=== PATIENT | male | born 1960 | race Caucasian/White ===

== ENCOUNTER 2019-05-09 10:30 | Emergency (ER) | payer BC ==
[2019-05-09] MEDS ORDERED: DUONEB 0.5-3 MG/3 ml Neb IH ONE (10:57)
[2019-05-09] MEDS ORDERED: PROVENTIL 2.5 MG/3 ML NEB IH ONE ×2 (10:57→11:25)
--- NOTE | 2019-05-09 10:59 | ERPHSYRPT ---
- History of Present Illness Time Seen by Provider: 05/09/19 10:33 Source: patient, other () Exam Limitations: no limitations Patient Subjective Stated Complaint: pt here for cough productive for a couple days, fever today 102.6. chills, loose stools yesterday, 2 loose stools today. Triage Nursing Assessment: pt alert, walked in , no distress, resp easy, skin w/ d/p, has cough.moves all ext well, no edema Physician History: the patient is a 58-year-old male with a past medical history significant for a cigarette smoking she currently smokes one pack of cigarettes a day and has been smoking for well over 20 years presents with a chief complaint of shortness of breath and cough. He reportedly started to experience a cough this past Friday and over the last 24 hours the cough has become productive over the patient has been swollen and sputum and has been unable to note any color change. Is also dorsum and shortness of breath more so with exertion and also endorses subcostal chest pain with coughing otherwise is pain-free. Indoors having subjective fevers and chills and just started to experience nonbloody diarrhea over the last 24 hours. He denies headache but endorsed having rhinorrhea and a sore throat. Patient denies otalgia, back pain, abdominal pain, nausea, vomiting. He's not had his influenza vaccine this year. He is accompanied in the emergency department by his who provide details pertaining to history of present illness. Timing/Duration: other (05/04) Severity of Dyspnea-Max: mild Severity of Dyspnea-Current: mild Modifying Factors: Improves With: exertion Associated Symptoms: cough, fever, wheezing, chills, productive cough, No chest pain/discomfort, No edema, No ankle swelling, No heaviness, No heart racing, No lightheadedness, No leg swelling, No sweating, No tightness Allergies/Adverse Reactions: No Known Drug Allergies Allergy (Unverified 05/09/19 10:42) Home Medications: Dorzolamide HCl 1 drop BID 05/09/19 [History] Latanoprost 1 drop DAILY 05/09/19 [History] Lisinopril 20 mg DAILY 05/09/19 [History] Timolol Maleate 1 drop BID 05/09/19 [History] Hx Influenza Vaccination/Date Given: No Hx Pneumococcal Vaccination/Date Given: No Immunizations Up to Date: Yes - Review of Systems Constitutional: Fever (aal), Chills Eyes: No Symptoms (aandand) Ears, Nose, & Throat: Nose Congestion ( and), Throat Pain, No Ear Pain (ggoing away), No Nose Pain, No Epistaxis Respiratory: Cough, Dyspnea on Exertion (SIMMONS) (E. or rhonchi), Wheezing (a) Cardiac: No Chest Pain, No Palpitations, No Syncope, No Orthopnea Abdominal/Gastrointestinal: Diarrhea, No Nausea (aa call), No Vomiting (on), No Constipation, No Hematemesis Genitourinary Symptoms: No Symptoms Musculoskeletal: No Symptoms Skin: No Symptoms Neurological: No Symptoms All Other Systems: Reviewed and Negative - Past Medical History Pertinent Past Medical History: Yes ( with 2 we will give) ENT History: Glaucoma Cardiac History: Hypertension - Past Surgical History Past Surgical History: Yes Other Surgical History: hand surgery - Social History Smoking Status: Current every day smoker Exposure to second hand smoke: Yes Drug Use: none Patient Lives Alone: No - Nursing Vital Signs Nursing Vital Signs: Initial Vital Signs Temperature 100.5 F 05/09/19 10:34 Pulse Rate 95 H 05/09/19 10:34 Respiratory Rate 18 05/09/19 10:34 Blood Pressure 154/89 05/09/19 10:34 O2 Sat by Pulse Oximetry 97 05/09/19 10:34 Pain Scale Pain Intensity 4 - Physical Exam General Appearance: no apparent distress Eye Exam: PERRL/EOMI Ears, Nose, Throat Exam: hearing grossly normal, normal pharynx, No sinus pain/ drainage, No nasal congestion, No pharyngeal erythema, No tonsillar exudate, No tonsillar swelling Neck Exam: normal inspection, supple, No non-tender Respiratory Exam: airway intact, diminished breath sounds, prolonged expirations (and), wheezing, other (Fine late expiratory wheezing bilaterally in mid to lower lobes when auscultating posteriorly), No chest tenderness (a), No respiratory distress, No accessory muscle use Cardiovascular/Chest Exam: normal heart sounds, regular rate/rhythm (aanda), normal peripheral pulses, No murmur, No edema, No JVD, No gallop ( home and he wasthe he is), No bradycardia, No tachycardia (a), No friction rub, No gallop/S3 , No gallop/S4 Abdominal/Gastrointestinal Exam: soft, No tenderness, No distention, No mass, No guarding Extremity Exam: non-tender Peripheral Pulses Exam: femoral (L): 0 Neurologic Exam: alert, oriented x 3 Skin Exam: normal color, warm, dry, No petechiae, No jaundice, No abrasion, No ecchymosis (and in no) SpO2 Interpretation: normal SpO2: 97 O2 Delivery: Room Air (in the) - Course Nursing assessment & vital signs reviewed: Yes EKG Interpreted by Me: RATE, Sinus Rhythm, NORMAL AXIS, NORMAL INTERVALS, NORMAL QRS, Non-specific ST Changes, Other (EKG read by me at 11:07. Negative for ST segment changes consistent with acute myocardial ischemia or injury) - Radiology Exams Chest X-ray Interpretation: Interpreted by me, Pneumonia (Left lower lobe pneumonia. Awaiting formal radiology review) Ordered Tests: Active Orders 24 hr Category Date Time Status EKG-ER Only STAT Care 05/09/19 10:49 Active IV Insertion STAT Care 05/09/19 10:53 Active Pulse Oximetry (ED) STAT Care 05/09/19 10:49 Active CHEST 2 VIEWS (PA AND LAT) Stat Exams 05/09/19 10:50 Taken CBC W DIFF Stat Lab 05/09/19 11:00 Completed Peak Expiratory Flow Rate ONCE RT 05/09/19 11:10 Active Respiratory Therapy Assessment DAILY RT 05/09/19 11:10 Active Medication Summary Discontinued Medications Generic Name Dose Route Start Last Admin Trade Name Freq PRN Reason Stop Dose Admin Albuterol Sulfate 2.5 mg 05/09/19 10:49 05/09/19 11:17 Proventil 2.5 Mg/3 Ml Neb IH 05/09/19 10:50 2.5 mg STAT ONE Administration Albuterol Sulfate Confirm 05/09/19 10:57 Proventil 2.5 Mg/3 Ml Neb Administered 05/09/19 10:58 Dose 2.5 mg IH .STK-MED ONE Albuterol Sulfate Confirm 05/09/19 11:25 Proventil 2.5 Mg/3 Ml Neb Administered 05/09/19 11:26 Dose 2.5 mg IH .STK-MED ONE Albuterol Sulfate 2.5 mg 05/09/19 11:25 05/09/19 11:36 Proventil 2.5 Mg/3 Ml Neb IH 05/09/19 11:26 2.5 mg STAT ONE Administration Albuterol/Ipratropium 3 ml 05/09/19 10:49 05/09/19 11:06 Duoneb 0.5-3 Mg/3 Ml Neb IH 05/09/19 10:50 3 ml STAT ONE Administration Albuterol/Ipratropium Confirm 05/09/19 10:57 Duoneb 0.5-3 Mg/3 Ml Neb Administered 05/09/19 10:58 Dose 3 ml IH .STK-MED ONE Aspirin 325 mg 05/09/19 12:27 Ecotrin 325 Mg PO 05/09/19 12:28 ONCE STA Prednisone 40 mg 05/09/19 10:49 05/09/19 11:06 Deltasone 20 Mg PO 05/09/19 10:50 40 mg STAT ONE Administration Prednisone Confirm 05/09/19 11:03 Deltasone 20 Mg Administered 05/09/19 11:04 Dose 40 mg .ROUTE .STK-MED ONE Lab/Rad Data: Laboratory Result Diagrams 05/09/19 11:00 05/09/19 11:00 Laboratory Results 05/09/19 05/09/19 05/09/19 Range/Units 11:00 11:00 11:00 WBC 10.2 (4.0-10.5) K/mm3 RBC 4.58 (4.1-5.6) M/mm3 Hgb 14.8 (12.5-18.0) gm/dl Hct 42.0 (42-50) % MCV 91.7 (78-100) fl MCH 32.3 H (26-32) pg MCHC 35.2 (32-36) g/dl RDW 13.7 (11.5-14.0) % Plt Count 199 (150-450) K/mm3 MPV 10.5 H (6-9.5) fl Gran % 79.0 H (36.0-66.0) % Eos # (Auto) 0.04 (0-0.5) Absolute Lymphs (auto) 0.98 L (1.0-4.6) Absolute Monos (auto) 1.10 (0.0-1.3) Lymphocytes % 9.6 L (24.0-44.0) % Monocytes % 10.8 (0.0-12.0) % Eosinophils % 0.4 (0.00-5.0) % Basophils % 0.2 (0.0-0.4) % Absolute Granulocytes 8.08 H (1.4-6.9) Basophils # 0.02 (0-0.4) Sodium Direct 139 (138-146) mmol/L Potassium 3.1 L (3.5-4.9) mmol/L Chloride 101 (98-109) mmol/L Carbon Dioxide 20 L (24-29) mmol/L Venous BUN 12 (8-26) mg/dL Creatinine 1.0 (0.6-1.3) mg/dL Glucose 158 H (70-105) mg/dL Ionized Calcium 1.31 (1.12-1.32) mmol/L Troponin 0.37 H (0.00-0.03) ng/mL - Progress Progress: improved Air Movement: good Progress Note: 05/09/19 11:02 The patient is nontoxic in appearance he presents with a chief complaint of initially dry cough that progressed to a productive cough as well as dyspnea on exertion. He is in no obvious respiratory distress and found to have fine late expiratory wheezing in the mid to lower lobes bilaterally. Given the patient's significant smoking history I am concerned the patient may have underlying emphysema that is undiagnosed and he may be suffering from an exacerbation of this versus COPD secondary to a viral upper respiratory tract infection. Pneumonia is also in the differential. I currently have a low suspicion for ACS but will check a troponin and if negative ACS is unlikely given his clinical symptoms and exam findings. A chest x-ray will be ordered to be for pneumonia, pleural effusion,, or evidence of pulmonary edema which may suggest CHF although my suspicion for this is low. In the meantime, he received no treatments in addition oral steroids and oral antibiotics in the emergency department and will be reassessed and if he clinically improved and is able to walk without hypoxia he'll be discharged home to follow with his primary care provider. Also during the initial history of present illness been discussed smoking cessation and on discuss this further on discharge. 05/09/19 11:56 the patient was sedated with his diagnosis of left lower lobe pneumonia. He was reassessed the fine and his wheezing cleared with the exception of wheezing in the left lower lobe consistent worse infiltrate was noted on the chest x- ray. In no significant respiratory distress and was able to ambulate around the department without developing hypoxia or increased work of breathing. Dr. Marino is currently paged and she is the on-call for the patient's primary care provider, Dr. Mendez. I'll speak to her to arrange outpatient followup this week. 05/09/19 12:36 05/09/19 0015 The patient's troponin came back elevated. Dr Moon was contacted and recommended transferring the patient to a facility that has cardiology capability. 05/09/19 The patient agrees to transfer to [facility] 05/09/19 12:43 I spoke to the ED physician at [facility] and the patient was accepted as an ED to ED transfer. The patient will be transferred via ALS for cardiac monitoring 05/09/19 12:46 The patient's CXR was uploaded the to the [facility]. 05/09/19 12:46 Blood Culture(s) Obtained: Yes Discussed with Dr.: Andree (Ok with discharge and call Dr. Mendez tomorrow to setup follow-up. ), Other (I spoke to the emergency room physician at [facility] who accepted the patient for transfer. Patient will be an ED to ED transfer) Counseled pt/family regarding: lab results, diagnosis, need for follow-up, rad results, smoking cessation - Departure Departure Disposition: Transfer ([facility]) Clinical Impression: Community acquired pneumonia, Hypokalemia, Tobacco abuse, Tobacco abuse counseling, Wheezing, Elevated troponin Condition: Stable Critical Care Time: No Referrals: JOVON MENDEZ MD [Primary Care Provider] - Additional Instructions: please call and schedule an appointment with your primary care provider to be seen this week and return if your shortness of breath becomes worse Prescriptions: Albuterol 2.5 mg/3 ml Neb [Proventil 2.5 mg/3 ml Neb] 2.5 mg IH Q2H/PRN PRN #25 neb PRN Reason: Shortness Of Breath/Wheezing Albuterol 8 gm Mdi Hfa [Ventolin Hfa MDI] 8 gm IH Q4H #1 hfa.[email or web address] Doxycycline Hyclate 100 mg [Vibramycin 100 MG] 100 mg PO BID #14 tab Prednisone 10 mg [Deltasone 10 mg] 60 mg PO DAILY #24 tablet
[2019-05-09] MEDS ORDERED: DELTASONE 20 MG ONE (11:03)
[2019-05-09] MEDS: DUONEB 0.5-3 MG/3 ml Neb IH ONE (11:06)
[2019-05-09] MEDS: DELTASONE 20 MG PO ONE (11:06)
[2019-05-09] MEDS: PROVENTIL 2.5 MG/3 ML NEB IH ONE ×2 (11:17→11:36)
[2019-05-09 11:20] LABS: Absolute Neutrophil Ct (ANC) 8.08 (1.4-6.9); BASOPHIL % 0.2 % (0.0-0.4); Basophil (Absolute #) 0.02 (0-0.4); Eosinophil % 0.4 % (0.00-5.0); Eosinophil (Absolute #) 0.04 (0-0.5); Hemoglobin 14.8 gm/dl (12.5-18.0); Lymphocyte (Absolute #) 0.98 (1.0-4.6); Lymphocytes % 9.6 % (24.0-44.0); Mean Cell Volume 91.7 fl (78-100); Mean Corpuscular Hemoglobin 32.3 pg (26-32); Mean Corpuscular Hgb Concent. 35.2 g/dl (32-36); Mean Platelet Volume 10.5 fl (6-9.5); Monocytes % 10.8 % (0.0-12.0); Platelet Count 199 K/mm3 (150-450); Red Blood Count 4.58 M/mm3 (4.1-5.6); Red Cell Distribution Width 13.7 % (11.5-14.0); White Blood Count 10.2 K/mm3 (4.0-10.5)
[2019-05-09] MEDS: Ecotrin 325 MG PO STA (12:46)
[2019-05-09 12:52] LABS: INFLUENZA A NEGATIVE (NEGATIVE); INFLUENZA B NEGATIVE (NEGATIVE); RESPIRATORY SYNCTIAL VIRUS NEGATIVE (Negative)
[2019-05-09 12:55] VITALS: BP 139/86; PULSE 96; O2SAT 93
[2019-05-09] MEDS ORDERED: TYLENOL EXTRA STRENGTH 500 MG ONE (12:55)
[2019-05-09] MEDS: TYLENOL EXTRA STRENGTH 500 MG PO STA (12:58)
--- NOTE | 2019-05-09 15:23 | XRAY ---
Indication: Cough 5 days. Comparison: None PA/lateral chest demonstrates lingula infiltrate. Remaining heart and right lung normal. Bony thorax intact.
== END 2019-05-09 13:05 | disposition short-term general hospital (02) ==
LOC: ED 10:30
DX: J18.9 Pneumonia, unspecified organism (principal); E87.6 Hypokalemia; Z72.0 Tobacco use; Z71.6 Tobacco abuse counseling; R06.2 Wheezing; R74.8 Abnormal levels of other serum enzymes; I10 Essential (primary) hypertension; Z79.899 Other long term (current) drug therapy
CPT/HCPCS: 36000; 36415; 71046; 80047; 83605; 84484; 85025; 87040; 87631; 93005; 93041; 94150; 94640; 94760; 99285; J7609; A9270-GY

== ENCOUNTER 2024-01-24 18:49 | Emergency (ER) | payer BC ==
[2024-01-24 19:14] VITALS: TEMP 97.2
--- NOTE | 2024-01-24 19:23 | ERPHSYRPT ---
- History of Present Illness Time Seen by Provider: 01/24/24 19:18 Historian: patient, family Exam Limitations: no limitations Patient Subjective Stated Complaint: pt here for loose stools since friday, he states he think he got hot outside working, was seen on and had labs done which family thinks were normal. low grade fever off and on Triage Nursing Assessment: pt walked in, resp easy. skin w/d/p. mucus membranes moist, abd soft and nontender to touch, no edema noted, Physician History: Pt has had diarrhea for about 1 week and had K of 2.6 Friday. No Abd pain but keeps drinking gatorade and having diarrhea. No Vomiting. Abd soft nontender without peritoneal signs or masses or distension. Normal mental status and neuro exam. Hx DM. Discussed risk/benefits of testing and Tx with pt and family including, CBC, CMP, IVF, K, Covid/FLu / RSV swabs, UA, Lactate, [place], Lipase and they wish to proceed, and these are ordered. Results discussed with pt and family. Timing/Duration: day(s) Activities at Onset: none Quality: other (No pain) Abdominal Pain Onset Location: other (No pain) Pain Radiation: no radiation Severity of Pain-Max: none Severity of Pain-Current: none Modifying Factors: Improves With: nothing Associated Symptoms: diarrhea, fever/chills, loss of appetite, No nausea, No vomiting Previous symptoms: same symptoms as today, recently seen, recently treated Allergies/Adverse Reactions: No Known Drug Allergies Allergy (Verified 01/24/24 18:54) Home Medications: Dorzolamide HCl 1 drop BID 05/09/19 [History] Latanoprost 1 drop DAILY 05/09/19 [History] lisinopriL [Lisinopril] 20 mg DAILY 05/09/19 [History] timoloL maleate [Timolol Maleate] 1 drop BID 05/09/19 [History] Hx Tetanus, Diphtheria Vaccination/Date Given: No Hx Influenza Vaccination/Date Given: No Hx Pneumococcal Vaccination/Date Given: No Immunizations Up to Date: Yes Travel Risk - International Travel Have you traveled outside of the country in past 3 weeks: No - Emerging Infectious Disease Are you exhibiting symptoms associated with any current EIDs: No - Review of Systems Constitutional: Fever, No Chills Eyes: No Symptoms Ears, Nose, & Throat: No Symptoms Respiratory: No Cough, No Dyspnea Cardiac: No Chest Pain, No Edema, No Syncope Abdominal/Gastrointestinal: Diarrhea, No Abdominal Pain, No Nausea, No Vomiting Genitourinary Symptoms: No Dysuria Musculoskeletal: No Back Pain, No Neck Pain Skin: No Rash Neurological: No Dizziness, No Focal Weakness, No Sensory Changes Psychological: No Symptoms Endocrine: No Symptoms Hematologic/Lymphatic: No Symptoms Immunological/Allergic: No Symptoms All Other Systems: Reviewed and Negative - Past Medical History Pertinent Past Medical History: Yes ( with 2 we will give) ENT History: Glaucoma Cardiac History: High Cholesterol, Hypertension Endocrine Medical History: Diabetes Type II - Past Surgical History Past Surgical History: Yes Other Surgical History: hand surgery - Social History Smoking Status: Former smoker Exposure to second hand smoke: No Drug Use: none Patient Lives Alone: No - Social Determinants of Health Will the patient participate in the screening: Declined to provide - Nursing Vital Signs Nursing Vital Signs: Initial Vital Signs Temperature 97.2 F 01/24/24 19:13 Pulse Rate 86 01/24/24 19:13 Respiratory Rate 18 01/24/24 19:13 Blood Pressure 110/79 01/24/24 19:13 O2 Sat by Pulse Oximetry 98 01/24/24 19:13 Pain Scale Pain Intensity 0 - Physical Exam General Appearance: no apparent distress, alert Eye Exam: PERRL/EOMI, eyes nml inspection Ears, Nose, Throat Exam: normal ENT inspection, pharynx normal, moist mucous membranes Neck Exam: normal inspection, non-tender, supple, full range of motion Respiratory Exam: normal breath sounds, lungs clear, No respiratory distress Cardiovascular Exam: regular rate/rhythm, normal heart sounds Gastrointestinal/Abdomen Exam: soft, No tenderness, No mass, No guarding, No pulsatile mass, No rebound, No hernia Rectal Exam: deferred Back Exam: normal inspection, normal range of motion, No CVA tenderness, No vertebral tenderness Extremity Exam: normal inspection, normal range of motion, pelvis stable Neurologic Exam: alert, oriented x 3, cooperative, normal mood/affect, nml cerebellar function, sensation nml, No motor deficits Skin Exam: normal color, warm, dry SpO2 Interpretation: normal SpO2: 98 O2 Delivery: Room Air - Course Nursing assessment & vital signs reviewed: Yes Ordered Tests: Active Orders 24 hr Category Date Time Status EKG-ER Only STAT Care 01/24/24 19:23 Active IV Insertion STAT Care 01/24/24 19:23 Active Telemetry q4h Care 01/24/24 19:28 Active Telemetry q4h Care 01/25/24 01:30 Active AMYLASE Stat Lab 01/24/24 19:35 Completed CBC W DIFF Stat Lab 01/24/24 19:35 Completed CMP Stat Lab 01/24/24 19:35 Completed CULTURE,URINE Stat Lab 01/24/24 21:42 Received LIPASE Stat Lab 01/24/24 19:35 Completed Lactic Acid Stat Lab 01/24/24 19:23 Completed Lactic Acid Stat Lab 01/24/24 22:16 Stop Req Lactic Acid Stat Lab 01/25/24 00:52 Completed MAG [MAGNESIUM] Stat Lab 01/25/24 00:30 Completed Potassium (Lab Test) [Potassium] Stat Lab 01/25/24 04:47 Completed UA W/RFX UR CULTURE Stat Lab 01/24/24 21:42 Completed Medication Summary Generic Name Dose Route Start Last Admin Trade Name Freq PRN Reason Stop Dose Admin Potassium Chloride 20 meq in 100 mls @ 50 mls/hr 01/24/24 19:30 01/24/24 21:32 Potassium Chloride 20 Meq In Water 100ml IV 01/24/24 23:29 50 mls/hr Q2H JANETT Administration Sodium Chloride 1,000 mls @ 150 mls/hr 01/24/24 21:00 01/25/24 02:44 Sodium Chloride 0.9% 1000 Ml IV 02/23/24 20:59 150 mls/hr .[id number] JANETT Administration Magnesium Sulfate/Dextrose 100 mls @ 200 mls/hr 01/25/24 05:02 01/25/24 05:05 Magnesium 1 Gm / 100 Ml D5w IV 01/25/24 05:31 200 mls/hr STAT ONE Administration Discontinued Medications Generic Name Dose Route Start Last Admin Trade Name Freq PRN Reason Stop Dose Admin Ciprofloxacin 500 mg 01/24/24 20:11 01/24/24 20:29 Ciprofloxacin 500 Mg Tablet PO 01/24/24 20:12 500 mg STAT ONE Administration Ciprofloxacin Confirm 01/24/24 20:28 Ciprofloxacin 500 Mg Tablet Administered 01/24/24 20:29 Dose 500 mg .ROUTE .STK-MED ONE Sodium Chloride 1,000 mls @ 999 mls/hr 01/24/24 19:23 01/24/24 19:35 Sodium Chloride 0.9% 1000 Ml IV 01/24/24 20:23 999 mls/hr .Q1H1M STA Administration Sodium Chloride Confirm 01/24/24 19:32 Sodium Chloride 0.9% 1000 Ml Administered 01/24/24 19:33 Dose 1,000 mls @ ud .ROUTE .STK-MED ONE Potassium Chloride 20 meq in 100 mls @ 50 mls/hr 01/25/24 01:29 01/25/24 01:40 Potassium Chloride 20 Meq In Water 100ml IV 01/25/24 03:28 50 mls/hr STAT ONE Administration Magnesium Sulfate/Dextrose Confirm 01/25/24 05:00 Magnesium 1 Gm / 100 Ml D5w Administered 01/25/24 05:01 Dose 100 mls @ ud IV .STK-MED ONE Lorazepam 2 mg 01/25/24 01:34 Lorazepam 2 Mg/1 Ml 2 Mg Vial IM 01/25/24 01:35 STAT ONE Magnesium Sulfate 1 gm 01/25/24 04:28 Magnesium Sulfate Injection IV 01/25/24 04:29 STAT ONE Metronidazole 500 mg 01/24/24 20:11 01/24/24 20:29 Metronidazole 500 Mg Tablet PO 01/24/24 20:12 500 mg STAT ONE Administration Metronidazole Confirm 01/24/24 20:28 Metronidazole 500 Mg Tablet Administered 01/24/24 20:29 Dose 500 mg .ROUTE .STK-MED ONE Potassium Bicarbonate 25 meq 01/24/24 20:09 01/24/24 20:29 Potassium Bicarbonate 25 Meq Tab PO 01/24/24 20:10 25 meq STAT ONE Administration Potassium Bicarbonate Confirm 01/24/24 20:28 Potassium Bicarbonate 25 Meq Tab Administered 01/24/24 20:29 Dose 25 meq .ROUTE .STK-MED ONE Potassium Bicarbonate 25 meq 01/25/24 01:30 01/25/24 01:39 Potassium Bicarbonate 25 Meq Tab PO 01/25/24 01:31 25 meq STAT ONE Administration Potassium Bicarbonate Confirm 01/25/24 01:39 Potassium Bicarbonate 25 Meq Tab Administered 01/25/24 01:40 Dose 25 meq .ROUTE .STK-MED ONE Lab/Rad Data: Laboratory Result Diagrams 01/24/24 19:35 01/25/24 04:47 Laboratory Results 01/25/24 01/25/24 01/25/24 Range/Units 04:47 00:52 00:30 WBC (4.23-9.07) x10^3/uL RBC (4.63-6.08) x10^6/uL Hgb (13.7-17.5) g/dL Hct (40.1-51.0) % MCV (79.0-92.2) fL MCH (25.7-32.2) pg MCHC (32.3-36.5) g/dL RDW (11.6-14.4) % Plt Count (163-337) x10^3/uL MPV (9.4-12.4) fL Gran % (34.0-67.9) % Immature Gran % (Auto) (0.001-0.429) % Nucleat RBC Rel Count (0.00-0.2) % Eos # (Auto) (0.04-0.54) x10^3/uL Immature Gran # (Auto) (0.001-0.031) x10^3u/L Absolute Lymphs (auto) (1.32-3.57) x10^3/uL Absolute Monos (auto) (0.30-0.82) x10^3/uL Absolute Nucleated RBC (0.00-0.012) x10^3u/L Lymphocytes % (21.8-53.1) % Monocytes % (5.3-12.2) % Eosinophils % (0.8-7.0) % Basophils % (0.2-1.2) % Absolute Granulocytes (1.78-5.38) x10^3/uL Basophils # (0.01-0.08) x10^3/uL Sodium (135-145) mmol/L Potassium 3.2 L (3.5-5.1) mmol/L Chloride (98-107) mmol/L Carbon Dioxide (22-30) mmol/L Anion Gap (5-15) MEQ/L BUN (9-20) mg/dL Creatinine (0.66-1.25) mg/dL Estimated GFR ML/MIN Glucose (74-106) mg/dL Lactic Acid 1.7 (0.4-2.0) Calcium (8.4-10.2) mg/dL Magnesium 1.5 L (1.6-2.3) mg/dL Total Bilirubin (0.2-1.3) mg/dL AST (17-59) U/L ALT (0-50) U/L Alkaline Phosphatase (38-126) U/L Serum Total Protein (6.3-8.2) g/dL Albumin (3.5-5.0) g/dL Amylase (30-110) U/L Lipase (23-300) U/L Urine Color (Yellow) Urine Appearance (Clear) Urine pH (4.6-8.0) Ur Specific [place] (1.005-1.030) Urine Protein (Negative) Urine Glucose (UA) (Negative) mg/dL Urine Ketones (Negative) Urine Blood (Negative) Urine Nitrite (Negative) Urine Bilirubin (Negative) Urine Urobilinogen (0.2) mg/dL Ur Leukocyte Esterase (Negative) U Hyaline Cast (Auto) (0-2) /LPF Urine Microscopic RBC (0-5) /HPF Urine Microscopic WBC (0-5) /HPF Ur Epithelial Cells (None Seen) /HPF Urine Bacteria (None Seen) /HPF Urine Culture Reflexed (NO) 01/24/24 01/24/24 01/24/24 Range/Units 21:42 19:35 19:35 WBC 9.5 H (4.23-9.07) x10^3/uL RBC 4.30 L (4.63-6.08) x10^6/uL Hgb 13.4 L (13.7-17.5) g/dL Hct 37.1 L (40.1-51.0) % MCV 86.3 (79.0-92.2) fL MCH 31.2 (25.7-32.2) pg MCHC 36.1 (32.3-36.5) g/dL RDW 14.0 (11.6-14.4) % Plt Count 317 (163-337) x10^3/uL MPV 9.2 L (9.4-12.4) fL Gran % 74.6 H (34.0-67.9) % Immature Gran % (Auto) 0.6 H (0.001-0.429) % Nucleat RBC Rel Count 0.0 (0.00-0.2) % Eos # (Auto) 0.11 (0.04-0.54) x10^3/uL Immature Gran # (Auto) 0.06 H (0.001-0.031) x10^3u/L Absolute Lymphs (auto) 1.11 L (1.32-3.57) x10^3/uL Absolute Monos (auto) 1.06 H (0.30-0.82) x10^3/uL Absolute Nucleated RBC 0.00 (0.00-0.012) x10^3u/L Lymphocytes % 11.7 L (21.8-53.1) % Monocytes % 11.2 (5.3-12.2) % Eosinophils % 1.2 (0.8-7.0) % Basophils % 0.7 (0.2-1.2) % Absolute Granulocytes 7.07 H (1.78-5.38) x10^3/uL Basophils # 0.07 (0.01-0.08) x10^3/uL Sodium 140 (135-145) mmol/L Potassium 2.9 L* (3.5-5.1) mmol/L Chloride 101 (98-107) mmol/L Carbon Dioxide 26 (22-30) mmol/L Anion Gap 15.3 H (5-15) MEQ/L BUN 10 (9-20) mg/dL Creatinine 1.08 (0.66-1.25) mg/dL Estimated GFR 78.1 ML/MIN Glucose 191 H (74-106) mg/dL Lactic Acid (0.4-2.0) Calcium 8.8 (8.4-10.2) mg/dL Magnesium (1.6-2.3) mg/dL Total Bilirubin 1.60 H (0.2-1.3) mg/dL AST 39 (17-59) U/L ALT 44 (0-50) U/L Alkaline Phosphatase 73 (38-126) U/L Serum Total Protein 6.9 (6.3-8.2) g/dL Albumin 3.7 (3.5-5.0) g/dL Amylase 51 (30-110) U/L Lipase 111 (23-300) U/L Urine Color Dark Yellow (Yellow) Urine Appearance Clear (Clear) Urine pH 6.0 (4.6-8.0) Ur Specific [place] 1.020 (1.005-1.030) Urine Protein 30 (Negative) Urine Glucose (UA) Negative (Negative) mg/dL Urine Ketones Trace A (Negative) Urine Blood Negative (Negative) Urine Nitrite Negative (Negative) Urine Bilirubin Negative (Negative) Urine Urobilinogen 1.0 A (0.2) mg/dL Ur Leukocyte Esterase Trace A (Negative) U Hyaline Cast (Auto) 3-5 A (0-2) /LPF Urine Microscopic RBC 3-5 (0-5) /HPF Urine Microscopic WBC 0-2 (0-5) /HPF Ur Epithelial Cells Moderate A (None Seen) /HPF Urine Bacteria None Seen (None Seen) /HPF Urine Culture Reflexed YES (NO) 01/24/24 01/24/24 Range/Units 19:23 00:34 WBC (4.23-9.07) x10^3/uL RBC (4.63-6.08) x10^6/uL Hgb (13.7-17.5) g/dL Hct (40.1-51.0) % MCV (79.0-92.2) fL MCH (25.7-32.2) pg MCHC (32.3-36.5) g/dL RDW (11.6-14.4) % Plt Count (163-337) x10^3/uL MPV (9.4-12.4) fL Gran % (34.0-67.9) % Immature Gran % (Auto) (0.001-0.429) % Nucleat RBC Rel Count (0.00-0.2) % Eos # (Auto) (0.04-0.54) x10^3/uL Immature Gran # (Auto) (0.001-0.031) x10^3u/L Absolute Lymphs (auto) (1.32-3.57) x10^3/uL Absolute Monos (auto) (0.30-0.82) x10^3/uL Absolute Nucleated RBC (0.00-0.012) x10^3u/L Lymphocytes % (21.8-53.1) % Monocytes % (5.3-12.2) % Eosinophils % (0.8-7.0) % Basophils % (0.2-1.2) % Absolute Granulocytes (1.78-5.38) x10^3/uL Basophils # (0.01-0.08) x10^3/uL Sodium (135-145) mmol/L Potassium 2.9 L* (3.5-5.1) mmol/L Chloride (98-107) mmol/L Carbon Dioxide (22-30) mmol/L Anion Gap (5-15) MEQ/L BUN (9-20) mg/dL Creatinine (0.66-1.25) mg/dL Estimated GFR ML/MIN Glucose (74-106) mg/dL Lactic Acid 3.2 H (0.4-2.0) Calcium (8.4-10.2) mg/dL Magnesium (1.6-2.3) mg/dL Total Bilirubin (0.2-1.3) mg/dL AST (17-59) U/L ALT (0-50) U/L Alkaline Phosphatase (38-126) U/L Serum Total Protein (6.3-8.2) g/dL Albumin (3.5-5.0) g/dL Amylase (30-110) U/L Lipase (23-300) U/L Urine Color (Yellow) Urine Appearance (Clear) Urine pH (4.6-8.0) Ur Specific [place] (1.005-1.030) Urine Protein (Negative) Urine Glucose (UA) (Negative) mg/dL Urine Ketones (Negative) Urine Blood (Negative) Urine Nitrite (Negative) Urine Bilirubin (Negative) Urine Urobilinogen (0.2) mg/dL Ur Leukocyte Esterase (Negative) U Hyaline Cast (Auto) (0-2) /LPF Urine Microscopic RBC (0-5) /HPF Urine Microscopic WBC (0-5) /HPF Ur Epithelial Cells (None Seen) /HPF Urine Bacteria (None Seen) /HPF Urine Culture Reflexed (NO) - Progress Progress: improved, re-examined Progress Note: 01/25/24 01:[address] Bruce hospitalist and we agree best to recheck K again after another round of K. This will take a few more hours, but may avoid admission. 01/25/24 01:38 01/25/24 05:23 discussed risks/ Benfits of Ab abd hosp vs outpt , (of cipro with tendons effect) and pt and family wish z dana and flagyl out pt instead. they also prefer DC with outpt T x to admission in hospital and have the capacity to make this choice. 01/25/24 05:26 Counseled pt/family regarding: lab results, diagnosis, need for follow-up Medical Desision Making - Independent Historian Additional History obtained from: Family - Discussion of managment Reviewed:: Test results, Need for additional workup Agreed on:: Treatment plan, need for follow-up - Diagnostic Testing Diagnostic test were ordered, analyzed, and reviewed by me: Yes - Risk of complications The pt has a mod risk of morbidity or mortality based on: Need for prescription drug management The pt has a high risk of morbidity or mortality based on: Decision regarding hospitilization or escalation of hosp level of care - Departure Departure Disposition: Home Clinical Impression: diarrhea with hypokalemia and hypomagnes Condition: Good Critical Care Time: No Referrals: RUFINA ORR MD [Primary Care Provider] - Follow up/PCP as directed Instructions: Diarrhea, Adult ED, Hypokalemia, Hypomagnesemia Additional Instructions: THe potassium has improved, and we also found low magnesium and replaced some of that. WHen dirrhea lasts this long there is often an infection, so we will treat for that as well and have you follow-up with your Dr. THere may be other undetected causes including colitis that need additional therapy so the followup is important and you may even need scoping. See your Dr. to recheck your pota ssium and magnesium Friday and to consider additional workup. Return meantime if any pain, vomiting, dizziness or any other symptoms of concern. We are also providing a potassium pill to take. followup your blood pressure also with your Dr. Prescriptions: Metronidazole 500 mg [Flagyl 500 MG] 500 mg PO TID #30 tablet Potassium Chloride Tab* [Klor Con] 10 meq PO BID #20 tablet Azithromycin 250 mg [Zithromax 250 MG TABLET] 250 mg PO ZPACK #6 tablet
[2024-01-24] MEDS ORDERED: Sodium Chloride 0.9% 1000 ML 1,000 ML ONE ×2 (19:32→20:52)
[2024-01-24] MEDS ORDERED: POTASSIUM CHLORIDE 20 mEq IN WATER 100ML 100 ML IV ONE ×2 (19:32→21:31)
[2024-01-24] MEDS: Sodium Chloride 0.9% 1000 ML 1,000 ML IV STA (19:35)
[2024-01-24] MEDS: POTASSIUM CHLORIDE 20 mEq IN WATER 100ML 20 MEQ/100 ML BAG IV SCH (19:36)
[2024-01-24 19:43] LABS: Absolute Neutrophil Ct (ANC) 7.07 x10^3/uL (1.78-5.38); BASOPHIL % 0.7 % (0.2-1.2); Basophil (Absolute #) 0.07 x10^3/uL (0.01-0.08); Eosinophil % 1.2 % (0.8-7.0); Eosinophil (Absolute #) 0.11 x10^3/uL (0.04-0.54); Hematocrit 37.1 % (40.1-51.0); Hemoglobin 13.4 g/dL (13.7-17.5); IMMATURE GRAN # 0.06 x10^3u/L (0.001-0.031); IMMATURE GRAN % 0.6 % (0.001-0.429); Lymphocyte (Absolute #) 1.11 x10^3/uL (1.32-3.57); Lymphocytes % 11.7 % (21.8-53.1); Mean Cell Volume 86.3 fL (79.0-92.2); Mean Corpuscular Hemoglobin 31.2 pg (25.7-32.2); Mean Corpuscular Hgb Concent. 36.1 g/dL (32.3-36.5); Mean Platelet Volume 9.2 fL (9.4-12.4); Monocyte (Absolute #) 1.06 x10^3/uL (0.30-0.82); Monocytes % 11.2 % (5.3-12.2); Neutrophil % 74.6 % (34.0-67.9); Platelet Count 317 x10^3/uL (163-337); White Blood Count 9.5 x10^3/uL (4.23-9.07)
[2024-01-24 19:59] LABS: ALBUMIN 3.7 g/dL (3.5-5.0); ANION GAP 15.3 MEQ/L (5-15); BILIRUBIN,TOTAL 1.6 mg/dL (0.2-1.3); Calcium 8.8 mg/dL (8.4-10.2); Creatinine 1 1.08 mg/dL (0.66-1.25); EST GLOMERULAR FILTRATION RATE 78.1 ML/MIN; Total Protein 6.9 g/dL (6.3-8.2)
[2024-01-24 20:04] LABS: Potassium 2.9 mmol/L (3.5-5.1)
[2024-01-24] MEDS ORDERED: Flagyl 500 MG ONE (20:28)
[2024-01-24] MEDS ORDERED: Cipro 500 MG ONE (20:28)
[2024-01-24] MEDS ORDERED: K-LYTE ONE (20:28)
[2024-01-24] MEDS: Flagyl 500 MG PO ONE (20:29)
[2024-01-24] MEDS: K-LYTE PO ONE (20:29)
[2024-01-24] MEDS: Cipro 500 MG PO ONE (20:29)
[2024-01-24] MEDS: Sodium Chloride 0.9% 1000 ML 1,000 ML IV SCH (20:53)
[2024-01-24 22:25] LABS: Appearance Clear (Clear); Bacteria None Seen /HPF (None Seen); Bilirubin Negative (Negative); Blood Negative (Negative); Epithelial Cells Moderate /HPF (None Seen); Glucose, Urine Negative (Negative); Ketones Trace (Negative); Leukocyte Esterase Trace (Negative); Nitrite Negative (Negative); Protein,Urine Dip 30 (Negative); WBC 0-2 /HPF (0-5)
[2024-01-24 22:32] LABS: ADD URINE CULTURE? YES (NO)
[2024-01-25] MEDS ORDERED: Ativan 2 MG/1 ML VIAL IM ONE (01:34)
[2024-01-25] MEDS ORDERED: POTASSIUM CHLORIDE 20 mEq IN WATER 100ML 100 ML IV ONE (01:39)
[2024-01-25] MEDS ORDERED: K-LYTE ONE (01:39)
[2024-01-25] MEDS: K-LYTE PO ONE (01:39)
[2024-01-25] MEDS: POTASSIUM CHLORIDE 20 mEq IN WATER 100ML 20 MEQ/100 ML BAG IV ONE (01:40)
[2024-01-25] MEDS ORDERED: Sodium Chloride 0.9% 1000 ML 1,000 ML ONE (02:43)
[2024-01-25] MEDS ORDERED: Magnesium Sulfate 1 GM/2 ML VIAL IV ONE (04:28)
[2024-01-25] MEDS ORDERED: Magnesium 1 Gm / 100 Ml D5W*** 100 ML IV ONE (05:00)
[2024-01-25] MEDS: Magnesium 1 Gm / 100 Ml D5W*** 100 ML IV ONE (05:05)
[2024-01-25 05:29] VITALS: O2SAT 98
[2024-01-25 05:53] VITALS: BP 147/99; PULSE 84; RESP 16
== END 2024-01-25 05:54 | disposition home or self-care (01) ==
LOC: ED 18:49
DX: R19.7 Diarrhea, unspecified (principal); E87.6 Hypokalemia; E83.42 Hypomagnesemia; E78.5 Hyperlipidemia, unspecified; I10 Essential (primary) hypertension; E11.9 Type 2 diabetes mellitus without complications; Z79.899 Other long term (current) drug therapy
CPT/HCPCS: 36000; 36415; 80053; 81001; 82150; 83605; 83690; 83735; 84132; 85025; 87086; 93005; 99285; J3475; J3480; A9270-GY

== ENCOUNTER 2024-01-27 06:56 | Emergency (ER) | payer BC ==
[2024-01-27 07:08] VITALS: TEMP 97.2
--- NOTE | 2024-01-27 07:31 | ERPHSYRPT ---
- History of Present Illness Time Seen by Provider: 01/27/24 07:20 Historian: patient Exam Limitations: no limitations Patient Subjective Stated Complaint: pt was getting up to use the bathroom and started having chest pain, pt was seen a couple days ago for hypokalemia Triage Nursing Assessment: pt ambulatory to bed by self with steady gait, pt alert and oriented x3, skin pwd, pt c/o chest pain that started 2 hrs ago, rating constant pain 6/10, pt seens dr. haskins for cardiology Physician History: For the past 2.5 hours pt has had constant chest pain 6/10 in severity; denies shortness of air, cough, abdominal pain, vomiting, nausea, fever; admits to diarrhea which started 6 days ago with last episode yesterday. Aspirin Treatment Today: 81 mg x 4, provided by ED Allergies/Adverse Reactions: No Known Drug Allergies Allergy (Verified 01/24/24 18:54) Home Medications: Dorzolamide HCl 1 drop BID 05/09/19 [History] Latanoprost 1 drop DAILY 05/09/19 [History] lisinopriL [Lisinopril] 20 mg DAILY 05/09/19 [History] timoloL maleate [Timolol Maleate] 1 drop BID 05/09/19 [History] Hx Tetanus, Diphtheria Vaccination/Date Given: No Hx Influenza Vaccination/Date Given: No Hx Pneumococcal Vaccination/Date Given: No Travel Risk - International Travel Have you traveled outside of the country in past 3 weeks: No - Emerging Infectious Disease Are you exhibiting symptoms associated with any current EIDs: No - Review of Systems Constitutional: No Fever Ears, Nose, & Throat: No Ear Pain, No Throat Pain Respiratory: No Dyspnea Cardiac: Chest Pain Abdominal/Gastrointestinal: Diarrhea, No Abdominal Pain, No Nausea, No Vomiting Genitourinary Symptoms: No Dysuria Neurological: No Headache - Past Medical History Pertinent Past Medical History: Yes ENT History: Glaucoma Cardiac History: High Cholesterol, Hypertension Endocrine Medical History: Diabetes Type II - Past Surgical History Past Surgical History: Yes Neuro Surgical History: No Pertinent History Cardiac: No Pertinent History Respiratory: No Pertinent History Gastrointestinal: No Pertinent History Genitourinary: No Pertinent History Musculoskeletal: No Pertinent History Male Surgical History: No Pertinent History Other Surgical History: hand surgery - Social History Smoking Status: Former smoker Exposure to second hand smoke: No Drug Use: none Patient Lives Alone: No - Social Determinants of Health Will the patient participate in the screening: Declined to provide - Nursing Vital Signs Nursing Vital Signs: Initial Vital Signs Temperature 97.2 F 01/27/24 07:02 Pulse Rate 75 01/27/24 07:02 Respiratory Rate 12 01/27/24 07:02 Blood Pressure 167/94 01/27/24 07:02 O2 Sat by Pulse Oximetry 100 01/27/24 07:02 Pain Scale Pain Intensity 3 - Physical Exam General Appearance: alert Eye Exam: PERRL/EOMI Ears, Nose, Throat Exam: other (cerumen occlusion of right ear) Neck Exam: normal inspection Respiratory Exam: lungs clear Cardiovascular Exam: normal heart sounds Gastrointestinal/Abdomen Exam: normal bowel sounds Extremity Exam: No pedal edema Neurologic Exam: alert, cooperative Skin Exam: warm, dry SpO2 Interpretation: normal SpO2: 100 O2 Delivery: Room Air - Course Nursing assessment & vital signs reviewed: Yes EKG Interpreted by Me: RATE (72), Sinus Rhythm, NORMAL AXIS, Other ([id number]) - Radiology Exams Chest X-ray Interpretation: Discussed w/ radiologist (PA/lateral chest again hyperinflated and is now clear. Heart not enlarged. Bony thorax intact. No new/acute findings.) Ordered Tests: Active Orders 24 hr Category Date Time Status EKG-ER Only STAT Care 01/27/24 07:32 Active IV Insertion STAT Care 01/27/24 07:32 Active Telemetry q4h Care 01/27/24 08:57 Active Telemetry q4h Care 01/27/24 12:50 Active CHEST 2 VIEWS (PA AND LAT) Stat Exams 01/27/24 07:32 Completed AMYLASE Stat Lab 01/27/24 07:49 Completed BMP Stat Lab 01/27/24 12:12 Completed BMP Stat Lab 01/27/24 15:40 Completed CBC W DIFF Stat Lab 01/27/24 07:49 Completed CMP Stat Lab 01/27/24 07:49 Completed LIPASE Stat Lab 01/27/24 07:49 Completed MAGNESIUM Stat Lab 01/27/24 07:49 Completed MAGNESIUM Stat Lab 01/27/24 12:12 Completed Manual Differential NC Stat Lab 01/27/24 07:49 Completed TROPONIN Q4H Lab 01/27/24 07:49 Completed TROPONIN Q4H Lab 01/27/24 10:56 Completed TROPONIN Q4H Lab 01/27/24 15:40 Received Medication Summary Generic Name Dose Route Start Last Admin Trade Name Lenin PRN Reason Stop Dose Admin Sodium Chloride 1,000 mls @ 100 mls/hr 01/27/24 07:45 01/27/24 07:43 Sodium Chloride 0.9% 1000 Ml IV 02/26/24 07:44 100 mls/hr .Q10H JANETT Administration Discontinued Medications Generic Name Dose Route Start Last Admin Trade Name Lenin PRN Reason Stop Dose Admin Aspirin 324 mg 01/27/24 07:33 01/27/24 07:44 Aspirin 81 Mg Tab.Chew PO 01/27/24 07:34 324 mg STAT ONE Administration Aspirin Confirm 01/27/24 07:39 Aspirin 81 Mg Tab.Chew Administered 01/27/24 07:40 Dose 324 mg .ROUTE .STK-MED ONE Potassium Chloride 20 meq in 100 mls @ 50 mls/hr 01/27/24 08:57 01/27/24 09:06 Potassium Chloride 20 Meq In Water 100ml IV 01/27/24 10:56 50 mls/hr STAT ONE Administration Magnesium Sulfate/Dextrose 100 mls @ 200 mls/hr 01/27/24 08:58 01/27/24 09:06 Magnesium 1 Gm / 100 Ml D5w IV 01/27/24 09:27 200 mls/hr STAT ONE Administration Magnesium Sulfate/Dextrose Confirm 01/27/24 09:04 Magnesium 1 Gm / 100 Ml D5w Administered 01/27/24 09:05 Dose 100 mls @ ud IV .STK-MED ONE Potassium Chloride Confirm 01/27/24 09:04 Potassium Chloride 20 Meq In Water 100ml Administered 01/27/24 09:05 Dose 100 mls @ ud IV .STK-MED ONE Potassium Chloride 20 meq in 100 mls @ 50 mls/hr 01/27/24 12:50 01/27/24 12:58 Potassium Chloride 20 Meq In Water 100ml IV 01/27/24 14:49 50 mls/hr STAT ONE Administration Potassium Chloride Confirm 01/27/24 12:53 Potassium Chloride 20 Meq In Water 100ml Administered 01/27/24 12:54 Dose 100 mls @ ud IV .STK-MED ONE Nitroglycerin 0.4 mg 01/27/24 07:33 01/27/24 07:44 Nitroglycerin 0.4 Mg (Ed) 0.4 Mg Tab.Subl SL 01/27/24 07:34 0.4 mg STAT ONE Administration Nitroglycerin Confirm 01/27/24 07:39 Nitroglycerin 0.4 Mg (Ed) 0.4 Mg Tab.Subl Administered 01/27/24 07:40 Dose 0.4 mg SL .STK-MED ONE Potassium Bicarbonate 50 meq 01/27/24 12:49 01/27/24 12:59 Potassium Bicarbonate 25 Meq Tab PO 01/27/24 12:50 50 meq STAT ONE Administration Potassium Bicarbonate Confirm 01/27/24 12:53 Potassium Bicarbonate 25 Meq Tab Administered 01/27/24 12:54 Dose 25 meq .ROUTE .STK-MED ONE Potassium Bicarbonate Confirm 01/27/24 12:59 Potassium Bicarbonate 25 Meq Tab Administered 01/27/24 13:00 Dose 25 meq .ROUTE .STK-MED ONE Potassium Chloride 40 meq 01/27/24 08:57 01/27/24 09:06 Potassium Chloride Tab 10 Meq Tab PO 01/27/24 08:58 40 meq STAT ONE Administration Potassium Chloride Confirm 01/27/24 09:04 Potassium Chloride Tab 10 Meq Tab Administered 01/27/24 09:05 Dose 40 meq .ROUTE .STK-MED ONE Lab/Rad Data: Laboratory Result Diagrams 01/27/24 07:49 01/27/24 15:40 Laboratory Results 01/27/24 01/27/24 01/27/24 Range/Units 15:40 12:12 10:56 WBC (4.23-9.07) x10^3/uL RBC (4.63-6.08) x10^6/uL Hgb (13.7-17.5) g/dL Hct (40.1-51.0) % MCV (79.0-92.2) fL MCH (25.7-32.2) pg MCHC (32.3-36.5) g/dL RDW (11.6-14.4) % Plt Count (163-337) x10^3/uL MPV (9.4-12.4) fL Segmented Neutrophils (1.78-5.38) % Lymphocytes (Manual) (24-44) % Monocytes (Manual) (0.0-12.0) % Atypical Lymphocytes % Toxic Granulation Platelet Estimate (NORMAL) RBC Morphology Sodium 141 142 (135-145) mmol/L Potassium 3.5 3.0 L* (3.5-5.1) mmol/L Chloride 105 105 (98-107) mmol/L Carbon Dioxide 27 29 (22-30) mmol/L Anion Gap 12.3 11.3 (5-15) MEQ/L BUN 3 L 4 L (9-20) mg/dL Creatinine 0.82 0.93 (0.66-1.25) mg/dL Estimated GFR 99.9 93.4 ML/MIN Glucose 143 H 103 (74-106) mg/dL Calcium 8.7 8.7 (8.4-10.2) mg/dL Magnesium 1.8 (1.6-2.3) mg/dL Total Bilirubin (0.2-1.3) mg/dL AST (17-59) U/L ALT (0-50) U/L Alkaline Phosphatase (38-126) U/L Troponin I < 0.012 (0.000-0.033) ng/mL Serum Total Protein (6.3-8.2) g/dL Albumin (3.5-5.0) g/dL Amylase (30-110) U/L Lipase (23-300) U/L 01/27/24 01/27/24 01/27/24 Range/Units 07:49 07:49 07:49 WBC 9.1 H (4.23-9.07) x10^3/uL RBC 3.93 L (4.63-6.08) x10^6/uL Hgb 12.3 L (13.7-17.5) g/dL Hct 34.5 L (40.1-51.0) % MCV 87.8 (79.0-92.2) fL MCH 31.3 (25.7-32.2) pg MCHC 35.7 (32.3-36.5) g/dL RDW 14.2 (11.6-14.4) % Plt Count 443 H (163-337) x10^3/uL MPV 10.1 (9.4-12.4) fL Segmented Neutrophils 75 H (1.78-5.38) % Lymphocytes (Manual) 21 L (24-44) % Monocytes (Manual) 3 (0.0-12.0) % Atypical Lymphocytes 1 % Toxic Granulation 1+ Platelet Estimate INCREASED (NORMAL) RBC Morphology NORMAL Sodium 143 (135-145) mmol/L Potassium 2.8 L* (3.5-5.1) mmol/L Chloride 103 (98-107) mmol/L Carbon Dioxide 29 (22-30) mmol/L Anion Gap 13.1 (5-15) MEQ/L BUN 4 L (9-20) mg/dL Creatinine 0.97 (0.66-1.25) mg/dL Estimated GFR 88.8 ML/MIN Glucose 148 H (74-106) mg/dL Calcium 8.7 (8.4-10.2) mg/dL Magnesium 1.4 L (1.6-2.3) mg/dL Total Bilirubin 0.80 (0.2-1.3) mg/dL AST 29 (17-59) U/L ALT 31 (0-50) U/L Alkaline Phosphatase 68 (38-126) U/L Troponin I < 0.012 (0.000-0.033) ng/mL Serum Total Protein 6.2 L (6.3-8.2) g/dL Albumin 3.5 (3.5-5.0) g/dL Amylase 67 (30-110) U/L Lipase 208 (23-300) U/L - Progress Progress: improved Counseled pt/family regarding: lab results, diagnosis, need for follow-up, rad results Medical Desision Making - Diagnostic Testing Diagnostic test were ordered, analyzed, and reviewed by me: Yes Radiological Interpretation: Discussed w/ radiologist - Departure Departure Disposition: Home Clinical Impression: Chest pain, Hypokalemia Condition: Stable Critical Care Time: No Referrals: RUFINA ORR MD [Primary Care Provider] - Follow up/PCP as directed Instructions: Chest Pain (DC) Additional Instructions: Follow up with private doctor tomorrow.
[2024-01-27] MEDS ORDERED: Sodium Chloride 0.9% 1000 ML 1,000 ML ONE (07:39)
[2024-01-27] MEDS ORDERED: BABY ASPIRIN 81 MG CHEW ONE (07:39)
[2024-01-27] MEDS ORDERED: Nitrostat 0.4 MG (ED) SL ONE (07:39)
[2024-01-27] MEDS: Sodium Chloride 0.9% 1000 ML 1,000 ML IV SCH (07:43)
[2024-01-27] MEDS: Nitrostat 0.4 MG (ED) SL ONE (07:44)
[2024-01-27] MEDS: BABY ASPIRIN 81 MG CHEW PO ONE ×2 (07:44→16:42)
[2024-01-27 07:50] LABS: Hematocrit 34.5 % (40.1-51.0); Hemoglobin 12.3 g/dL (13.7-17.5); Mean Cell Volume 87.8 fL (79.0-92.2); Mean Corpuscular Hemoglobin 31.3 pg (25.7-32.2); Mean Corpuscular Hgb Concent. 35.7 g/dL (32.3-36.5); Mean Platelet Volume 10.1 fL (9.4-12.4); Platelet Count 443 x10^3/uL (163-337); Red Blood Count 3.93 x10^6/uL (4.63-6.08); Red Cell Distribution Width 14.2 % (11.6-14.4); White Blood Count 9.1 x10^3/uL (4.23-9.07)
[2024-01-27 08:08] LABS: ATYPICAL LYMPHS 1 %; Lymphocytes 21 % (24-44); Monocyte 3 % (0.0-12.0); Neutrophils 75 % (1.78-5.38); Total Cells Counted 100
[2024-01-27 08:09] LABS: Platelet Estimate INCREASED (NORMAL); Toxic Granulation 1+
--- NOTE | 2024-01-27 08:38 | XRAY ---
Indication: Chest pain. Comparison: May 09, 2017 PA/lateral chest again hyperinflated and is now clear. Heart not enlarged. Bony thorax intact. No new/acute findings.
[2024-01-27 08:42] LABS: ALBUMIN 3.5 g/dL (3.5-5.0); ANION GAP 13.1 MEQ/L (5-15); BILIRUBIN,TOTAL 0.8 mg/dL (0.2-1.3); Calcium 8.7 mg/dL (8.4-10.2); Creatinine 1 0.97 mg/dL (0.66-1.25); EST GLOMERULAR FILTRATION RATE 88.8 ML/MIN; MAGNESIUM 1.4 mg/dL (1.6-2.3); Total Protein 6.2 g/dL (6.3-8.2)
[2024-01-27 08:57] LABS: Potassium 2.8 mmol/L (3.5-5.1)
[2024-01-27] MEDS ORDERED: POTASSIUM CHLORIDE 20 mEq IN WATER 100ML 100 ML IV ONE ×2 (09:04→12:53)
[2024-01-27] MEDS ORDERED: Klor Con ONE (09:04)
[2024-01-27] MEDS ORDERED: Magnesium 1 Gm / 100 Ml D5W*** 100 ML IV ONE (09:04)
[2024-01-27] MEDS: POTASSIUM CHLORIDE 20 mEq IN WATER 100ML 20 MEQ/100 ML BAG IV ONE ×2 (09:06→12:58)
[2024-01-27] MEDS: Klor Con PO ONE (09:06)
[2024-01-27] MEDS: Magnesium 1 Gm / 100 Ml D5W*** 100 ML IV ONE (09:06)
[2024-01-27 12:41] LABS: ANION GAP 11.3 MEQ/L (5-15); Calcium 8.7 mg/dL (8.4-10.2); Creatinine 1 0.93 mg/dL (0.66-1.25); EST GLOMERULAR FILTRATION RATE 93.4 ML/MIN; MAGNESIUM 1.8 mg/dL (1.6-2.3)
[2024-01-27 12:46] VITALS: RESP 18
[2024-01-27] MEDS ORDERED: K-LYTE ONE ×2 (12:53→12:59)
[2024-01-27] MEDS: K-LYTE PO ONE (12:59)
[2024-01-27 15:40] VITALS: BP 145/91; PULSE 79
[2024-01-27 16:10] LABS: ANION GAP 12.3 MEQ/L (5-15); Calcium 8.7 mg/dL (8.4-10.2); Creatinine 1 0.82 mg/dL (0.66-1.25); EST GLOMERULAR FILTRATION RATE 99.9 ML/MIN; Potassium 3.5 mmol/L (3.5-5.1)
[2024-01-27 16:23] VITALS: O2SAT 100
== END 2024-01-27 16:43 | disposition home or self-care (01) ==
LOC: ED 06:56
DX: R07.9 Chest pain, unspecified (principal); E87.6 Hypokalemia; R19.7 Diarrhea, unspecified; E78.5 Hyperlipidemia, unspecified; I10 Essential (primary) hypertension; E11.9 Type 2 diabetes mellitus without complications; Z79.899 Other long term (current) drug therapy
CPT/HCPCS: 36000; 36415; 71046; 80048; 80053; 82150; 83690; 83735; 84484; 85025; 93005; 96365; 96368; 99284; J3475; J3480; A9270-GY